=== PATIENT | female | born 1935 | race Caucasian/White ===

== ENCOUNTER 2024-12-02 16:21 | Inpatient (IN) | payer MEDICARE, OTHER, SELFPAY ==
[2024-12-02] VITALS (12 sets, daily range): BP systolic 116–148; BP diastolic 50–99; BMI 32.7; BMI 32.9
[2024-12-02 05:52] LABS: % Basophils 0.2 % (0-2); % Eosinophils 1.4 % (0-6); % Immature Granulocytes 0.6 % (0-0.5); % Lymphocytes 4.8 % (20.5-51.1); % Monocytes 6.1 % (1.7-9.3); % Neutrophils 86.9 % (42.2-75.2); Absolute Eosinophils 0.2 10^3/uL (0-0.7); Absolute Immature Granulocytes 0.1 10^3/uL (0-0.05); Absolute Lymphocytes 0.6 10^3/uL (1.2-3.4); Absolute Monocytes 0.7 10^3/uL (0.1-0.6); Absolute Neutrophils 10.3 10^3/uL (1.4-6.5); Hematocrit 41.9 % (37.0-47.0); Hemoglobin 14.9 g/dL (12.0-16.0); Mean Corp Hgb Conc. 35.6 g/dL (33.0-37.0); Mean Corpuscular Hgb 31.4 pg (27.0-31.0); Mean Corpuscular Volume 88.4 fL (81.0-99.0); Mean Platelet Volume 8.5 fL (7.4-10.4); Nucleated Red Blood Cells % 0 %; Platelet Count 249 10^3/uL (130-400); Red Blood Cell Count 4.74 10^6/uL (4.20-5.40); Red Cell Dist. Width 12.3 % (11.5-14.5); White Blood Cell Count 11.8 10^3/uL (4.8-10.8)
[2024-12-02] MEDS: ZOFRAN ODT (ORALLY DISINTEGRATING) 4 MG PO (06:11)
[2024-12-02 06:26] LABS: ALT (SGPT) 28 U/L (0-35); AST (SGOT) 29 U/L (14-36); Albumin 4.9 g/dl (3.5-5.0); Alkaline Phosphatase 93 U/L (38-126); Blood Urea Nitrogen 19 mg/dl (7-17); Carbon Dioxide 25 mmol/L (22-30); Chloride 102 mmol/L (98-107); Glucose 174 mg/dl (70-99); Lipase 146 U/L (23-300); Potassium 3.9 mmol/L (3.5-5.1); Sodium 140 mmol/L (135-145); Total Bilirubin 1.2 mg/dl (0.2-1.3); Total Protein 7.4 g/dl (6.3-8.2); eGFR > 60.00
--- NOTE | 2024-12-02 08:11 | ED.GENMED ---
History of Present Illness
General
Chief Complaint: Abdominal Symptoms
Source: patient and family (son)
Exam Limitations: none
Time Seen by Provider: 12/02/24 07:58
Nursing documentation reviewed up to this point in time: agreed with
History of Present Illness
History of Present Illness:
89-year-old female presents emergency department due to epigastric abdominal pain. She woke up with the pain several hours ago. She got Zofran upon arrival which she states did help some. Has had multiple hernia repairs and has had a
fundoplication.
Past History
Past History
ED Past Medical History: Arrthythmia, GERD and Other (DVT)
ED Past Surgical History: Appendectomy, Gynecological (D&C), Orthopedic (Left knee replacement), Tonsilectomy and Other (Thyroid biopsy)
Social History
Tobacco: Non-smoker
Alcohol: None
Drug: None
Review of Systems
Review of Systems
Allergies reviewed?: Yes
All Other Systems: Not applicable
Constitutional: Reports no symptoms
EENT: Reports no symptoms
Respiratory: Reports no symptoms
Cardiac: Reports no symptoms
ABD/GI: Reports abdominal pain
: Reports no symptoms
Musculoskeletal: Reports no symptoms
Skin: Reports no symptoms
Neurological: Reports no symptoms
Endocrine: Reports no symptoms
Hematologic/Lymphatic: Reports no symptoms
Psychiatric: Reports no symptoms
Phy Exam
Physical Exam
Physical Exam:
Physical Exam
General: no apparent distress, not acutely ill
Neck: supple. no meningeal signs. normal posterior pharynx
Heart: s1/s2 regular rate and rhythm, no murmur. equal radial
pulses.
HEENT: Pupils equal round reactive to light, EOMI
Lungs: no acute respiratory distress. clear bilaterally
Abdomen: normal bowel sounds. Mild epigastric tenderness, large epigastric ventral hernia. no CVAT
Neuro: alert and oriented. no focal neurological deficits
Skin: no rash
Psychiatric: well kept. interactive and cooperative
Extremities: no edema. no calf tenderness. negative homans. good distal pulses
Course
Orders/Labs/Results
Orders:
Orders
12/02/24 05:43
Complete Blood Count/With Diff Urgent
Comprehensive Metabolic Panel Urgent
Lipase Urgent
12/02/24 06:08
Ondansetron Orally Disint [Zofran Odt (Orally Disintegrating)] 4 mg .ROUTE .STK-MED ONE
12/02/24 06:11
Ondansetron Orally Disint [Zofran Odt (Orally Disintegrating)] 4 mg PO NOW STA
12/02/24 07:52
CT Abd/Pel (IV only)-DH only Urgent
Comment:
Reason For Exam: upper abd pain
12/02/24 08:08
Iohexol [Omnipaque] See Protocol PO NOW STA
12/02/24 10:07
Morphine Sulfate 4 mg IV NOW STA
12/02/24 10:08
Morphine Sulfate 4 mg .ROUTE .STK-MED ONE
12/02/24 11:16
Morphine Sulfate 4 mg IV NOW STA
12/02/24 11:19
Morphine Sulfate 4 mg IV NOW STA
12/02/24 12:44
NG Tube [GI tube insertion- Treatment] ONCE
12/02/24 13:08
Ondansetron Injectable [Zofran] 4 mg IV NOW STA
12/02/24 13:30
Lactic Acid Q4H
Comment: CANCEL 2nd LACTIC ACID IF 1st LACTIC ACID IS LESS THAN 2
12/02/24 17:30
Lactic Acid Q4H
Comment: CANCEL 2nd LACTIC ACID IF 1st LACTIC ACID IS LESS THAN 2
Abnormal Lab Results
12/02/24
05:43
WBC 11.8 H 10^3/uL
(4.8-10.8)
MCH 31.4 H pg
(27.0-31.0)
Abs Immat Gran (auto) 0.1 H 10^3/uL
(0-0.05)
Absolute Neuts (auto) 10.3 H 10^3/uL
(1.4-6.5)
Absolute Lymphs (auto) 0.6 L 10^3/uL
(1.2-3.4)
Absolute Monos (auto) 0.7 H 10^3/uL
(0.1-0.6)
Immature Gran % 0.6 H %
(0-0.5)
Neutrophils % 86.9 H %
(42.2-75.2)
Lymphocytes % 4.8 L %
(20.5-51.1)
BUN 19 H mg/dl
(7-17)
Glucose 174 H mg/dl
(70-99)
12/02/24 05:43
12/02/24 05:43
Vital Signs
Initial and Last Documented VS:
Initial Vital Signs
Temp Pulse Resp BP Pulse Ox
98.5 F 98 16 136/99 98
12/02/24 05:35 12/02/24 05:35 12/02/24 05:35 12/02/24 05:35 12/02/24 05:35
Last Documented Vital Signs
Temp Pulse Resp BP Pulse Ox
98.5 F 100 18 117/55 94
12/02/24 05:35 12/02/24 14:00 12/02/24 14:00 12/02/24 14:00 12/02/24 14:00
MDM/Problems Addressed
Differential Diagnosis Includes:
Bowel obstruction
MDM/Problems Addressed:
89-year-old female with gastric outlet obstruction and colonic. G-tube placed. Discussed with general surgery who will evaluate patient. Admit to hospitalist.
Chronic conditions affecting care: Arrhythmia and Other (History of PE, anticoagulated)
Acute Exacerbation and/or Progression of Chronic Illness: Other (History of PE and atrial fibrillation, anticoagulated)
*Radiology
Radiology exam reviewed: radiology read reviewed (CT abdomen pelvis shows colonic obstruction and gastric outlet obstruction)
*Pulse Oximetry
Patient hypoxic: no
*Critical Care Note
Total Time (30-74mins, 75-104mins- exclusive of procedures): Not Applicable
Patient Management
Social determinants of health affecting care: Living situation
Discussion with other providers: Hospitalist and Production Supervisor Off Shift (general surgeon)
Escalation/DeEscalation of care consider admission/obs:
admit indicated
ED Attending Note
-
Portions of this chart may have been created with voice recognition software.� Occasional wrong word or��sound alike� substitutions may have occurred due to the inherent limitations of voice recognition software.
Discharge Plan
Departure
Patient Disposition: Admit
Date of Disposition: 12/02/24
Time of Disposition: 12:56
Admit to: Med/Surg
Presentation/result/management discussed w/ accepting MD/DO: Hospitalist
Patient with high blood pressure during this ER visit?: Yes
Condition: Fair
Discharge Problem:
Gastric outlet obstruction, Colon obstruction
Prescriptions:
No Action
cholecalciferol (vitamin D3) [Vitamin D3] 2,000 UNIT capsule
2,000 unit PO DAILY
acetaminophen 325 MG tablet
650 tablets PO DAILY
therapeutic multivitamin Tablet
1 tab PO DAILY
tramadol 50 mg Tablet
50 mg PO HS
omeprazole 20 mg Capsule,Delayed Release(Dr/Ec)
20 mg PO DAILY
calcium-magnesium 750-465 mg Tablet
2 tab PO DAILY
loratadine [Claritin] 10 mg Tablet
10 mg PO DAILY
famotidine 20 mg tablet
20 mg PO HS
polyethylene glycol 3350 [Miralax] 17 gram/dose Powder
17 g PO DAILYPRN PRN (Reason: constipation)
Eliquis 5 mg Tablet
5 mg PO BID Qty: 60 0RF
furosemide 40 mg tablet
40 mg PO BID
ropinirole 1 mg tablet
2.5 mg PO BID@1200,1800
ropinirole 1 mg tablet
2 mg PO HS
ropinirole 1 mg tablet
1 mg PO DAILY
diltiazem HCl 180 mg capsule,extended release 24hr
180 mg PO BID
Referrals:
Wayne Perea MD [Family Provider] -
Interventions
Interventions:
*Risk Screen - Suicide Last Done: 12/02/24 05:35
*General Assessment Last Done: 12/02/24 05:35
*Neglect/Abuse Screening Last Done: 12/02/24 05:35
ED- Fall Risk Assessment Last Done: 12/02/24 08:04
*ED COVID-19 Vaccine History Last Done: 12/02/24 05:35
KH-Rhsjvl-Cgnkovpthq Assessment Last Done: 12/02/24 08:15
Discharge Date and Time
Print Language: URDU
[2024-12-02] MEDS: OMNIPAQUE 50 ML PO (08:14)
--- NOTE | 2024-12-02 08:16 | EDRN ---
Pt states she has had fundification in past and cannot vomit though has nausea and pain w/ hernia above umbilical area, very large. Pt has had multiple surgeries for this hernia that have been unsuccessful. Has [address]
[2024-12-02] MEDS: MORPHINE SULFATE 4 MG IV ×3 (10:14→13:18)
--- NOTE | 2024-12-02 11:57 | EDRN ---
Pain med starting to work and pain is now 7/10 from 1010 at this time.
[2024-12-02] MEDS: ZOFRAN 4 MG IV (13:18)
--- NOTE | 2024-12-02 13:49 | EDRN ---
Alondra w/ Dr. Frank was in to see pt. NGT placed #16 Fr down L nare at this time w/ 950 drained from abd after checked w/ air and drainage of brown green bile colored drainage.
--- NOTE | 2024-12-02 14:02 | CON.GS ---
Addendum entered and electronically signed by Rajan Frank MD 12/02/24 17:53:
Patient seen and examined independently of nurse practitioner this evening. Agree with documented consultation note consistent with my current evaluation.
HPI: 89-year-old female with longstanding history of a known recurrent incisional ventral hernia that she has been following expectantly. She is typically able to reduce the hernia rather easily and utilizes an abdominal binder to assist with
supporting the region. On Thursday evening she felt the acute onset of epigastric abdominal pain and nausea as well as the hernia being larger than typically and 2 tender to reduce. Symptoms worsened over the night and persisted into the a.m.
prompting emergency department evaluation. She did have a bowel movement this a.m. Bowels have been moving regularly otherwise.
PMH notable for P A-fib, pituitary adenoma, RLS, DVT/PE, vertigo, essential tremor
Abdominal PSH notable for open cholecystectomy, hiatal hernia/fundoplication repair x 2, tubal ligation, appendectomy, incisional/ventral hernia repair x 2 with mesh
AF VSS
NAD, AAOx3, her son is at bedside
NG tube in place with dark bilious contents in canister
Abdomen: Soft, mildly distended, large upper midline incisional hernia which is soft and reducible but immediately reoccurs due to the size of the hernia. Minimal tenderness on palpation of the hernia.
CT abdomen/pelvis imaging personally reviewed and interpreted. There is a large upper midline recurrent incisional hernia containing loop of transverse colon as well as stomach to the level of the pylorus. Oral contrast opacifying a distended
stomach but does not exit the hernia sac. Pylorus appears to be pinched at the right side of the fascial defect. No signs of strangulation such as inflammation, pneumatosis or thickening of the colon or stomach.
Assessment/plan: 89-year-old female presenting with obstructive symptoms likely secondary to large recurrent ventral incisional hernia. No signs of immediate stomach/bowel compromise or threat.
NG tube decompression to alleviate gastric distention will likely allow stomach to more readily and spontaneously reduce to alleviate obstructive component
Recommend utilizing abdominal wall binder for support
At the moment continue to hold Eliquis
Will follow
Ultimately given size of the hernia defect and patient's age as well as prior abdominal surgical history it would be quite invasive to entertain repairing such a large hernia which typically will require abdominal wall reconstruction with myofascial
flap/component separation. Likely will continue to opt for nonoperative management with supportive care.
Original Note:
Medical History
-
Chief Complaint: n/v
History of Present Illness:
Ms Carrera is an 89 yo female with a h/o brittanie, appi, UHR with mesh in the with recurrence and subsequent repair in 2002 with mesh at the time of a fundoplication done for GERD with recurrence and increasing size of the hernia over the past few
years who presents with nausea and epigastric pain which began last night. She was able to pass a BM this morning but notes she has not been passing flatus with increasing abdominal distention noted. Her symptoms worsened throughout the night into
this morning and she presented through the ED for evaluation.
Past Medical History
Past Medical History: Arrhythmias (PAF on Eliquis LD 12/01 pm), GERD and Other (pituitary adenoma, rls, dvt/pe, vertigo, essential tremor)
Past Surgical History: Appendectomy, Brain (for pituitary adenoma), Cholecystectomy, Gynecological (tubal ligation), Hernia Repair (UHR with mesh x2 (2nd repair at time of fundoplication)) and Other (Fundoplication for GERD 2002)
Social History
Tobacco: Non-Smoker
Alcohol: None
Living: With Family
Family History
Family History: Reviewed & Not Pertinent
Allergies / Home Medications
Allergy/AdvReac Type Severity Reaction Status Date / Time
adhesive Allergy SENSITIVE Verified 07/04/23 11:29
amoxicillin Allergy Rash Verified 07/04/23 11:29
aztreonam Allergy Rash Verified 07/04/23 11:29
Penicillins Allergy Anaphylaxis Verified 07/04/23 11:29
�Medication �Instructions �Recorded �Confirmed �Type
cholecalciferol (vitamin D3) 50 2,000 unit PO DAILY Supplement 06/26/15 12/02/24 History
mcg (2,000 unit) capsule (Vitamin
D3)
acetaminophen 325 mg tablet 650 tablets PO DAILY 06/28/15 12/02/24 History
calcium-magnesium 750 mg-465 mg 2 tab PO DAILY Supplement 07/04/23 12/02/24 History
tablet
famotidine 20 mg tablet 20 mg PO HS Gastrointestinal Issue 07/04/23 12/02/24 History
loratadine 10 mg tablet (Claritin) 10 mg PO DAILY Allergies 07/04/23 12/02/24 History
omeprazole 20 mg capsule,delayed 20 mg PO DAILY Gastrointestinal 07/04/23 12/02/24 History
release Issue
polyethylene glycol 3350 17 17 g PO DAILYPRN PRN constipation 07/04/23 12/02/24 History
gram/dose oral powder (Miralax)
therapeutic multivitamin 1 tab PO DAILY Supplement 07/04/23 12/02/24 History
tramadol 50 mg tablet 50 mg PO HS Pain 07/04/23 12/02/24 History
apixaban 5 mg tablet (Eliquis) 5 mg PO BID #60 tabs 07/09/23 12/02/24 Rx
diltiazem HCl 180 mg 180 mg PO BID 12/02/24 12/02/24 History
capsule,extended release 24 hr
furosemide 40 mg tablet 40 mg PO BID 12/02/24 12/02/24 History
ropinirole 1 mg tablet 1 mg PO DAILY 12/02/24 12/02/24 History
ropinirole 1 mg tablet 2 mg PO HS 12/02/24 12/02/24 History
ropinirole 1 mg tablet 2.5 mg PO BID@1200,1800 12/02/24 12/02/24 History
Review of Systems
-
History Source: Patient and Family
All other systems: Negative unless noted
A 10 point review of systems was completed, and was negative except as per HPI.
Physical Exam
Vital Signs
Temp Pulse Resp BP Pulse Ox
98.5 F 97 18 122/66 97
12/02/24 05:35 12/02/24 11:00 12/02/24 11:00 12/02/24 11:00 12/02/24 11:00
12/01/24 12/02/24 12/03/24
06:59 06:59 06:59
Actual Weight 91.8 kg
Body Mass Index (BMI) 32.7
Lab Results
12/02/24 05:43
12/02/24 05:43
WBC 11.8 10^3/uL (4.8-10.8) H 12/02/24 05:43
Hgb 14.9 g/dL (12.0-16.0) 12/02/24 05:43
Hct 41.9 % (37.0-47.0) 12/02/24 05:43
Plt Count 249 10^3/uL (130-400) 12/02/24 05:43
Abs Immat Gran (auto) 0.1 10^3/uL (0-0.05) H 12/02/24 05:43
Neutrophils % 86.9 % (42.2-75.2) H 12/02/24 05:43
Physical Exam
General: Well Developed and Well Nourished
HEENT: Moist Mucous Membranes
Respiratory: Non Labored Respirations
GI: Soft, Non Tender, Distended and Other (supraumbilical hernia which is soft and wide mouthed; easy to reduce )
Skin: Warm and Dry
Neuro: Awake, Alert and AO x 3
Psych: Calm
Data Reviewed
-
CT Scan: Image Personally Visualized and interpreted, Report Reviewed by me, Discussed with Physician, Discussed with Nurse, Discussed with Patient and Discussed with Family
Labs: Labs Reviewed by me, Discussed with Physician, Discussed with Patient and Discussed with Family
Old Records: Reviewed
Assessment / Plan
-
Ms Carrera is an 89 yo female with a h/o brittanie, appi, UHR with mesh in the 1989' with recurrence and subsequent repair in 2002 with mesh at the time of a fundoplication done for GERD with recurrence and increasing size of the hernia over the past few
years who presents with nausea and epigastric pain which began last night.
Ct imaging with large hernia containing bowel and portion of the stomach with resultant obstruction. NGT was placed at bedside for approximately 1 Liter of initially w[place]sworth material and then bile. After decompression of the stomach, the hernia was
able to be reduced. Soft, non-tender and no overlying skin changes present. Abdominal distention present. Afebrile with stable vital signs.
--Continue NPO with NGT for decompression
--IVF while NPO
--Hold PO anticoagulation at this time
--Medical management as per primary team
[2024-12-02 15:18] LABS: Lactic Acid 1.5 mmol/L (0.7-2.0)
--- NOTE | 2024-12-02 15:47 | CM ---
CM reviewed medical records. CM spoke with patient's daughter in law who endorsed that patient lives in an [place] apartment. Patient is a mennonite and active in the community. As per daughter in law, if patient should need placement, they would prefer
[facility] or [facility].
Patient remains acutely ill at this time. CM will continue to follow.
--- NOTE | 2024-12-02 16:19 | HPS.HSE ---
Addendum entered and electronically signed by Kenna Webster MD 12/02/24 16:41:
I personally performed a history and physical exam of the patient and discussed management with the resident. I reviewed the resident's note and agree with the documented findings and plan of care HPI/CC.
A/P:
# Epigastric abdominal pain 2/2 bowel obstruction 2/2 large hernia containing bowel and portion of the stomach
s/p stomach decompression and hernia reduction
NGT per surgery
NPO with gentle IVF
noted pedal edema, low dose IV lasix 20 mg daily
IV Zofran PRN
GS on board
# paroxysmal A-fib
COSMETIC SURGEON Eliquis on hold, replace with heparin drip
COSMETIC SURGEON PO Diltiazem on hold, can use IV Cardizem PRN for HR > 120
# Restless leg syndrome
Ropinirole on hold
DVT prophylaxis�heparin drip
CODE STATUS�DNR
Original Note:
Family Physician
-
Family Physician: Wayne Perea
Chief Complaint
-
Abdominal pain
History of Present Illness
89 yo female with a past medical history of A-fib on Eliquis, PE/DVT, cholecystectomy, appendectomy and multiple abdominal hernia repairs presents with nausea and epigastric pain which began last night. She has been having this from the protruded
contents of the abdominal hernia repairs since the past several months and uses abdominal binder at home. She was able to pass a BM this morning but notes she has not been passing flatus with increasing abdominal distention noted. Her symptoms
worsened throughout the night into this morning and she presented through the ED for evaluation. She denies fever/chills, diarrhea.
Medical History
Past Medical History
Past Medical History: Reports Arrhythmia and Other (DVT/PE, restless leg syndrome)
Past Surgical History: Reports Appendectomy, Cholecystectomy and Tonsilectomy
Social History
Tobacco: Non-smoker
Alcohol: None
Family History
Family History: Not pertinent
Allergies / Home Medications
Allergies reflects when Allergies were last updated in [employer].
Home Medications with original date entered in [employer]
Allergy/Medication List:
Allergies
Allergy/AdvReac Type Severity Reaction Status Date / Time
adhesive Allergy SENSITIVE Verified 07/04/23 11:29
amoxicillin Allergy Rash Verified 07/04/23 11:29
aztreonam Allergy Rash Verified 07/04/23 11:29
Penicillins Allergy Anaphylaxis Verified 07/04/23 11:29
Home Medications
cholecalciferol (vitamin D3) 50 mcg (2,000 unit) capsule (Vitamin D3) 2,000 unit PO DAILY Supplement 06/26/15
acetaminophen 325 mg tablet 650 tablets PO DAILY Pain 06/28/15
calcium-magnesium 750 mg-465 mg tablet 2 tab PO DAILY Supplement 07/04/23
famotidine 20 mg tablet 20 mg PO HS Gastrointestinal Issue 07/04/23
loratadine 10 mg tablet (Claritin) 10 mg PO DAILY Allergies 07/04/23
omeprazole 20 mg capsule,delayed release 20 mg PO DAILY Gastrointestinal Issue 07/04/23
polyethylene glycol 3350 17 gram/dose oral powder (Miralax) 17 g PO DAILYPRN PRN constipation 07/04/23
therapeutic multivitamin 1 tab PO DAILY Supplement 07/04/23
tramadol 50 mg tablet 50 mg PO HS Pain 07/04/23
apixaban 5 mg tablet (Eliquis) 5 mg PO BID Blood Clot Prevention/Tx 12/02/24
diltiazem HCl 180 mg capsule,extended release 24 hr 180 mg PO BID Arrhythmia 12/02/24
furosemide 40 mg tablet 40 mg PO BID Fluid Retention/Swelling 12/02/24
ropinirole 1 mg tablet 1 mg PO DAILY movement disorder 12/02/24
ropinirole 1 mg tablet 2 mg PO HS movement disorder 12/02/24
ropinirole 1 mg tablet 2.5 mg PO BID@1200,1800 movement disorder 12/02/24
Review of Systems
-
A 12 point ROS was completed and negative except as noted: Yes
Physical Exam
Vital Signs
Vital Signs
Temp Pulse Resp BP Pulse Ox
98.5 F 100 18 117/55 94
12/02/24 05:35 12/02/24 14:00 12/02/24 14:00 12/02/24 14:00 12/02/24 14:00
Physical Exam
General: No Apparent Distress
HEENT: NormoCephalic, Anicteric and Moist mucous membranes
Respiratory: Clear
Cardiac: S1/S2 and Regular Rhythm
GI: Soft, Tender, Distended and Other (Supraumbilical hernia)
Skin: Warm and Dry
Neuro: Awake, Alert, Oriented and AO x 3
Laboratory Results
-
12/02/24 05:43
12/02/24 05:43
Laboratory Results
Lactic Acid Cancelled 12/02/24 17:30
Total Bilirubin 1.2 mg/dl (0.2-1.3) 12/02/24 05:43
AST 29 U/L (14-36) 12/02/24 05:43
ALT 28 U/L (0-35) 12/02/24 05:43
Alkaline Phosphatase 93 U/L (38-126) 12/02/24 05:43
Lipase 146 U/L (23-300) 12/02/24 05:43
Impression/Plan
-
89-year-old female presenting to the ED with abdominal pain and nausea.
Impression/plan
#Epigastric abdominal pain, distention
From herniation of the supraumbilical abdominal wall defect
Ct imaging with large hernia containing bowel and portion of the stomach with resultant partial obstruction.
Surgery consult
N.p.o.
IV fluids
NG tube decompression
IV Zofran
Analgesics as needed
Discontinue Eliquis
Started on heparin drip
#A-fib
Eliquis on hold
Diltiazem on hold
Started on heparin drip
#Restless leg syndrome
Ropinirole on hold
#DVT prophylaxis�heparin
#CODE STATUS�DNR
[2024-12-02] MEDS: LASIX 20 MG IV (17:03)
--- NOTE | 2024-12-02 18:30 | PTCARENOTE ---
Patient received to room 436-02 from ED. Patient assisted into bed by nursing staff. Nasogastric tube to wall suction with green/brown drainage in tubing. Patient oriented to room with call stevenson in reach and verbalizes understanding to ring for
needs.
[2024-12-02] MEDS: HEPARIN 25000 UNITS/250 ML IV (19:53)
[2024-12-02] MEDS: NSS 1000 IV (20:05)
[2024-12-02] MEDS: NSS (PRESERVATIVE FREE) 10 ML IV (20:06)
[2024-12-02] MEDS: PROTONIX IV 40 MG IV (20:06)
[2024-12-02 20:19] LABS: Hematocrit 44.3 % (37.0-47.0); Hemoglobin 15.3 g/dL (12.0-16.0); Mean Corp Hgb Conc. 34.5 g/dL (33.0-37.0); Mean Corpuscular Hgb 31.7 pg (27.0-31.0); Mean Corpuscular Volume 91.7 fL (81.0-99.0); Mean Platelet Volume 8.7 fL (7.4-10.4); Platelet Count 222 10^3/uL (130-400); Red Blood Cell Count 4.83 10^6/uL (4.20-5.40); Red Cell Dist. Width 12.7 % (11.5-14.5); White Blood Cell Count 7.5 10^3/uL (4.8-10.8)
[2024-12-02 20:27] LABS: APTT 34.8 Sec (23.4-35.0)
[2024-12-03] MEDS: OFIRMEV 100 IV (00:32)
[2024-12-03 02:48] LABS: APTT 74.8 Sec (23.4-35.0)
[2024-12-03 07:00] VITALS: BP 135/75
[2024-12-03 09:17] LABS: % Basophils 0.2 % (0-2); % Immature Granulocytes 0.2 % (0-0.5); % Lymphocytes 20.2 % (20.5-51.1); % Monocytes 16.6 % (1.7-9.3); % Neutrophils 62.8 % (42.2-75.2); Absolute Lymphocytes 0.8 10^3/uL (1.2-3.4); Absolute Monocytes 0.7 10^3/uL (0.1-0.6); Absolute Neutrophils 2.6 10^3/uL (1.4-6.5); Hemoglobin 14.3 g/dL (12.0-16.0); Mean Corpuscular Hgb 31.4 pg (27.0-31.0); Mean Corpuscular Volume 92.1 fL (81.0-99.0); Mean Platelet Volume 8.9 fL (7.4-10.4); Nucleated Red Blood Cells % 0 %; Platelet Count 175 10^3/uL (130-400); Red Blood Cell Count 4.56 10^6/uL (4.20-5.40); Red Cell Dist. Width 12.7 % (11.5-14.5); White Blood Cell Count 4.1 10^3/uL (4.8-10.8)
[2024-12-03 09:23] LABS: APTT 70.1 Sec (23.4-35.0)
[2024-12-03 09:40] LABS: Blood Urea Nitrogen 23 mg/dl (7-17); Calcium 8.4 mg/dl (8.4-10.2); Carbon Dioxide 27 mmol/L (22-30); Chloride 103 mmol/L (98-107); Estimated Creatinine Clearance 56 ml/min; Glucose 89 mg/dl (70-99); Potassium 3.7 mmol/L (3.5-5.1); Sodium 141 mmol/L (135-145); eGFR > 60.00
[2024-12-03] MEDS: LASIX 20 MG IV (09:46)
[2024-12-03] MEDS: PROTONIX IV 40 MG IV (09:47)
[2024-12-03] MEDS: NSS (PRESERVATIVE FREE) 10 ML IV (09:48)
[2024-12-03 11:18] LABS: Urine Albumin 2+ (Neg - Trace); Urine Bilirubin Negative (Negative); Urine Character Clear (Clear); Urine Color Yellow; Urine Glucose Negative (Negative); Urine Ketone 1+ (Negative); Urine Leukocyte Negative (Negative); Urine Nitrite Negative (Negative); Urine Occult Blood 2+ (Negative); Urine Specific Gravity 1.015 (<1.030); Urine Urobilinogen Negative (Neg - 1+)
[2024-12-03 11:33] LABS: Urine Bacteria Few (Negative)
[2024-12-03] MEDS: ATIVAN 0.25 MG IV ×2 (12:42→22:04)
--- NOTE | 2024-12-03 13:19 | W.PN.GS2 ---
Addendum entered and electronically signed by Higinio Linder MD 12/03/24 19:50:
I saw and examined the patient.
The LUMP MAKER's note was reviewed and I agree with the note.
Original Note:
Today's Communication / Plan
-
NPO/NGT
Assessment / Plan
-
Assessment: 89-year-old female presenting with obstructive symptoms likely secondary to large recurrent ventral incisional hernia. No signs of immediate stomach/bowel compromise or threat.
NG tube decompression to alleviate gastric distention will likely allow stomach to more readily and spontaneously reduce to alleviate obstructive component
Febrile yesterday to 102.5, VSS
Labs stable
Plan:
Recommend utilizing abdominal wall binder for support
At the moment continue to hold Eliquis
Continue NGT decompression, await passage of flatus
Will follow
Ultimately given size of the hernia defect and patient's age as well as prior abdominal surgical history it would be quite invasive to entertain repairing such a large hernia which typically will require abdominal wall reconstruction with myofascial
flap/component separation. Likely will continue to opt for nonoperative management with supportive care.
Subjective Data
-
Date of Service: December 03, 2024
Patient seen and examined at bedside with Dr Linder. Denies n/v. Passed a little liquid stool but no flatus. Denies pain but is tender to exam of hernia.
Objective Data
-
Intake and Output
12/02/24 12/03/24 12/04/24
06:59 06:59 06:59
Output Total 1325 / 1325 850 / 850
Balance -1325 / -1325 -850 / -850
Output:
Gastrointestinal tube output ( 1325 / 1325 100 / 100
Total)
[place] Sump 100 / 100
Urine, Voided 750 / 750
Other:
Number of approximated MODERATE 1
amounts of urine
Vital Signs
Temp Pulse Resp BP Pulse Ox
98.7 F 91 18 135/75 97
12/03/24 07:00 12/03/24 07:00 12/03/24 07:00 12/03/24 09:46 12/03/24 07:00
Lab Results
12/03/24 08:48
12/03/24 08:48
Calcium 8.4 mg/dl (8.4-10.2) 12/03/24 08:48
Total Bilirubin 1.2 mg/dl (0.2-1.3) 12/02/24 05:43
AST 29 U/L (14-36) 12/02/24 05:43
ALT 28 U/L (0-35) 12/02/24 05:43
Alkaline Phosphatase 93 U/L (38-126) 12/02/24 05:43
Total Protein 7.4 g/dl (6.3-8.2) 12/02/24 05:43
Albumin 4.9 g/dl (3.5-5.0) 12/02/24 05:43
Physical Exam
-
NAD
ABD soft with upper midline incisional hernia tender but soft/reducible, mild distention
--- NOTE | 2024-12-03 13:35 | W.PN.HOSP.TC ---
Addendum entered and electronically signed by Karmen Weaver MD 12/03/24 15:55:
I saw and evaluated the patient independently. I reviewed the resident�s note and agree with findings and plan as documented by Dr. Cartwright.
GENERAL: well developed, well nourished, female in no apparent distress
HEENT:NGT to intermittent suction
HEART: irreg irreg
LUNGS : clear to auscultation bilaterally
ABDOM: soft, nontender, nondistended, + bowel sounds + large ventral hernia
EXT: no cyanosis, clubbing, or edema
NEUROLOGIC: grossly intact
Epigastric abdominal pain, distention likely due to SBO from adhesions/hernia--CT imaging with large hernia containing bowel and portion of the stomach with resultant partial obstruction--reduced by surgery--cont NGT--NPO/IVF--cont abdominal
binder--restart oral meds when no longer on NGT--zofran--Eliquis on hold and IV heparin started---Due to prior recurrent hernia repairs, age and size of the hernia�surgery recommend nonoperative management with supportive care.
Febrile episode--may be related to SBO--consideration for ABX
possible RCC?--NOT telling patient at this time--want recovery from SBO
Paroxysmal A-fib with diastolic CHF no exacerbation--Eliquis on hold--cont IV heparin--IV diltiazem
Restless leg syndrome--Ropinirole on hold--will try low dose IV ativan 0.25mg HS
DVT proph�heparin
CODE STATUS�DNR
Original Note:
Today's Communication/Plan
-
Continue NG tube decompression
Assessment / Plan
Assessment / Plan
89-year-old female presenting to the ED with abdominal pain and nausea.
Impression/plan
#Epigastric abdominal pain, distention
From herniation of the supraumbilical abdominal wall defect
Ct imaging with large hernia containing bowel and portion of the stomach with resultant partial obstruction.
Surgery consulted
Hernia sac reduced by surgery
N.p.o.
IV fluids
Continue NG tube decompression
await passage of flatus
Abdominal wall binder for support
IV Zofran
Analgesics as needed
Due to prior recurrent hernia repairs, age and size of the hernia�surgery recommend nonoperative management with supportive care.
Discontinue Eliquis
Started on heparin drip
#Febrile episode
Tmax�102.5
Rest of the vital stable, labs stable
Chest x-ray�no evidence of pneumonia
Urinalysis pending.
#A-fib
Eliquis on hold
Per oral diltiazem on hold, IV Cardizem PRN for HR > 120
Started on heparin drip
#Restless leg syndrome
Ropinirole on hold
#DVT prophylaxis�heparin
#CODE STATUS�DNR
Anticipated Discharge: 24 - 48 hours
Subjective/Interval History
-
Date of Service: December 03, 2024
Patient reports her abdominal pain and nausea has improved.
She wanted something for her restless leg syndrome, as she could not sleep well yesterday.
Objective Data
-
Labs:
Laboratory Results
12/03/24 12/03/24 12/03/24
02:19 08:48 14:30
WBC 4.1 L
Hgb 14.3
Hct 42.0
Plt Count 175 D
APTT 74.8 H 70.1 H Pending
Sodium 141
Potassium 3.7
Chloride 103
Carbon Dioxide 27
BUN 23 H
Creatinine 0.8
Glucose 89
Calcium 8.4
Vital Signs:
Vital Signs
Temp Pulse Resp BP Pulse Ox
98.7 F 91 18 135/75 97
12/03/24 07:00 12/03/24 07:00 12/03/24 07:00 12/03/24 09:46 12/03/24 07:00
I&O
12/02/24 12/03/24 12/04/24
06:59 06:59 06:59
Output Total 1325 / 1325 850 / 850
Balance -1325 / -1325 -850 / -850
Physical Exam
-
General: No Apparent Distress
HEENT: Normocephalic and Atraumatic
Respiratory: Clear to Auscultation
Cardiac: Regular Rhythm and S1/S2
GI: Soft, Normal Bowel Sounds, Tender and Other (Reducible midline incisional hernia)
Skin: Warm and Dry
Neuro: Awake, Alert, Oriented and AO x 3
Psych: Calm
[2024-12-03] MEDS: NSS 1000 IV (14:43)
[2024-12-03 15:01] LABS: APTT 99.7 Sec (23.4-35.0)
[2024-12-03 16:26] VITALS: BP 112/74; PULSE 93
[2024-12-03 16:32] VITALS: BP 112/74; PULSE 93
[2024-12-03] MEDS: HEPARIN 25000 UNITS/250 ML IV (18:29)
[2024-12-03 21:12] LABS: APTT 133.7 Sec (23.4-35.0)
[2024-12-03] MEDS: NSS (PRESERVATIVE FREE) 0.125 ML IV (22:05)
[2024-12-03 23:30] VITALS: BP 114/68
[2024-12-04] MEDS: ATIVAN 0.25 MG IV (03:51)
[2024-12-04] MEDS: NSS (PRESERVATIVE FREE) 0.125 ML IV (03:52)
[2024-12-04 07:05] VITALS: BP 154/74
[2024-12-04 07:23] LABS: % Basophils 0.3 % (0-2); % Eosinophils 0.5 % (0-6); % Lymphocytes 21.9 % (20.5-51.1); % Monocytes 18.8 % (1.7-9.3); % Neutrophils 58.5 % (42.2-75.2); Absolute Lymphocytes 0.9 10^3/uL (1.2-3.4); Absolute Monocytes 0.7 10^3/uL (0.1-0.6); Absolute Neutrophils 2.3 10^3/uL (1.4-6.5); Hematocrit 36.4 % (37.0-47.0); Hemoglobin 12.7 g/dL (12.0-16.0); Mean Corp Hgb Conc. 34.9 g/dL (33.0-37.0); Mean Corpuscular Hgb 31.4 pg (27.0-31.0); Mean Corpuscular Volume 89.9 fL (81.0-99.0); Mean Platelet Volume 9.5 fL (7.4-10.4); Nucleated Red Blood Cells % 0 %; Platelet Count 143 10^3/uL (130-400); Red Blood Cell Count 4.05 10^6/uL (4.20-5.40); Red Cell Dist. Width 12.3 % (11.5-14.5); White Blood Cell Count 3.9 10^3/uL (4.8-10.8)
[2024-12-04 07:29] LABS: APTT 72.8 Sec (23.4-35.0)
[2024-12-04 07:42] LABS: ALT (SGPT) 39 U/L (0-35); AST (SGOT) 43 U/L (14-36); Albumin 4.1 g/dl (3.5-5.0); Alkaline Phosphatase 73 U/L (38-126); Blood Urea Nitrogen 18 mg/dl (7-17); Calcium 8.5 mg/dl (8.4-10.2); Carbon Dioxide 21 mmol/L (22-30); Chloride 108 mmol/L (98-107); Estimated Creatinine Clearance 74 ml/min; Glucose 89 mg/dl (70-99); Potassium 3.6 mmol/L (3.5-5.1); Sodium 142 mmol/L (135-145); Total Bilirubin 1.1 mg/dl (0.2-1.3); Total Protein 6.5 g/dl (6.3-8.2); eGFR > 60.00
--- NOTE | 2024-12-04 08:23 | W.PN.HOSP.TC ---
Addendum entered and electronically signed by Karmen Weaver MD 12/04/24 20:19:
I saw and evaluated the patient independently. I reviewed the resident�s note and agree with findings and plan as documented by Dr. Cartwright.
GENERAL: well developed, well nourished, female in no apparent distress
HEENT: NGT to intermittent suction
HEART: irreg irreg
LUNGS : clear to auscultation bilaterally
ABDOM: soft, nontender, nondistended, + bowel sounds + large ventral hernia
EXT: no cyanosis, clubbing, or edema
NEUROLOGIC: grossly intact
Epigastric abdominal pain, distention likely due to SBO from adhesions/hernia--CT imaging with large hernia containing bowel and portion of the stomach with resultant partial obstruction--reduced by surgery--doing better, abdominal binder in place,
clamping NGT--NPO/IVF--restart oral meds when no longer on NGT--zofran--Eliquis on hold and IV heparin started---Due to prior recurrent hernia repairs, age and size of the hernia�surgery recommend nonoperative management with supportive care.
Febrile episode--may be related to SBO--consideration for ABX
possible RCC?--NOT telling patient at this time--want recovery from SBO
Paroxysmal A-fib with diastolic CHF no exacerbation--Eliquis on hold--cont IV heparin--IV diltiazem
Restless leg syndrome--Ropinirole on hold--low dose IV ativan 0.25mg did not work, increase to 0.5mg--restart ropinirole as soon as able
DVT proph�heparin
CODE STATUS�DNR
updated son Sigifredo and LB Landon ([employer]CH[employer]) at bedside
Original Note:
Today's Communication/Plan
-
NG Tube clamp trial.
Ativan 0.5 mg , prn.
Assessment / Plan
Assessment / Plan
89-year-old female presenting to the ED with abdominal pain and nausea.
Impression/plan
#Epigastric abdominal pain, distention
From herniation of the supraumbilical abdominal wall defect
Ct imaging with large hernia containing bowel and portion of the stomach with resultant partial obstruction.
Surgery consulted
Hernia sac reduced by surgery
NPO
IV fluids
NG tube clamp trial
Hold on diet advancement for now.
Abdominal wall binder for support
IV Zofran
Analgesics as needed
Due to prior recurrent hernia repairs, age and size of the hernia�surgery recommend nonoperative management with supportive care.
Discontinue Eliquis
Started on heparin drip
#Febrile episode
Tmax�102.5
Rest of the vital stable, labs stable
Chest x-ray�no evidence of pneumonia
Urinalysis - no evidence of uti.
Monitor fever curve.
#A-fib
Eliquis on hold
Per oral diltiazem on hold, IV Cardizem PRN for HR > 120
Started on heparin drip
#Restless leg syndrome
Ropinirole on hold
Ativan 0.5 mg prn.
#DVT prophylaxis�heparin
#CODE STATUS�DNR
Anticipated Discharge: 24 - 48 hours
Subjective/Interval History
-
Date of Service: December 04, 2024
Patient reports her symptoms improved, no nausea, mild abdominal pain. Passed flatus.
She requests to have something strong for her restless legs, says, yesterday's dose of ativan didn't help much.
Objective Data
-
Labs:
Laboratory Results
12/03/24 12/04/24 12/04/24
20:44 05:00 07:01
WBC 3.9 L
Hgb 12.7
Hct 36.4 L
Plt Count 143
APTT 133.7 H Cancelled 72.8 H
Sodium 142
Potassium 3.6
Chloride 108 H
Carbon Dioxide 21 L
BUN 18 H
Creatinine 0.6
Glucose 89
Calcium 8.5
Total Bilirubin 1.1
AST 43 H
ALT 39 H
Alkaline Phosphatase 73
12/04/24
14:00
WBC
Hgb
Hct
Plt Count
APTT Pending
Sodium
Potassium
Chloride
Carbon Dioxide
BUN
Creatinine
Glucose
Calcium
Total Bilirubin
AST
ALT
Alkaline Phosphatase
Vital Signs:
Vital Signs
Temp Pulse Resp BP Pulse Ox
98.3 F 104 16 154/74 99
12/04/24 07:05 12/04/24 07:05 12/04/24 07:05 12/04/24 07:05 12/04/24 07:05
I&O
12/03/24 12/04/24 12/05/24
06:59 06:59 06:59
Intake Total 600 / 600
Output Total 1325 / 1325 900 / 900 100 / 100
Balance -1325 / -1325 -300 / -300 -100 / -100
Review of Systems
-
All other systems: Reviewed and negative (as per history)
Physical Exam
-
HEENT: Normocephalic, Atraumatic and Other (NG tube in place.)
Respiratory: Clear to Auscultation
Cardiac: Regular Rhythm and S1/S2
GI: Soft, Distended and Other (upper midline incisional hernia tender, reducible)
Musculoskeletal: Other (restless legs)
Skin: Warm and Dry
Neuro: Awake, Alert, Oriented and AO x 3
Psych: Calm
[2024-12-04] MEDS: NSS 1000 IV (08:33)
[2024-12-04] MEDS: LASIX 20 MG IV (08:33)
[2024-12-04] MEDS: PROTONIX IV 40 MG IV (08:34)
[2024-12-04] MEDS: NSS (PRESERVATIVE FREE) 10 ML IV (08:34)
--- NOTE | 2024-12-04 11:58 | CHAP ---
No was enjoying a visit from her son and [id number]. She welcomed prayer. Emotional and spiritual support provided.
--- NOTE | 2024-12-04 12:58 | W.PN.GS2 ---
Addendum entered and electronically signed by Higinio Linder MD 12/04/24 15:29:
I saw and examined the patient.
The [employer] INST[employer]ER's note was reviewed and I agree with the note.
Original Note:
Today's Communication / Plan
-
Clamp trial of NGT
Assessment / Plan
-
Assessment: 89-year-old female presenting with obstructive symptoms likely secondary to large recurrent ventral incisional hernia. No signs of immediate stomach/bowel compromise or threat.
No further fevers, VSS
NGT in place for decompression. Now passing flatus with 3 stools last night
Labs stable
Plan:
Recommend utilizing abdominal wall binder for support
At the moment continue to hold Eliquis
Clamp trial of NGT, remove if low residual but will hold on diet advancement for now
Will follow
Ultimately given size of the hernia defect and patient's age as well as prior abdominal surgical history it would be quite invasive to entertain repairing such a large hernia which typically will require abdominal wall reconstruction with myofascial
flap/component separation. Likely will continue to opt for nonoperative management with supportive care.
Subjective Data
-
Date of Service: December 04, 2024
Patient seen and examined at bedside with Dr Linder. Passing flatus and stools. Denies nausea. Some tenderness persists to hernia site.
Objective Data
-
Intake and Output
12/03/24 12/04/24 12/05/24
06:59 06:59 06:59
Intake Total 600 / 600
Output Total 1325 / 1325 900 / 900 100 / 100
Balance -1325 / -1325 -300 / -300 -100 / -100
Intake:
IV fluids (Total) 600 / 600
Output:
Gastrointestinal tube output ( 1325 / 1325 150 / 150 100 / 100
Total)
[place] Sump 150 / 150 100 / 100
Urine, Voided 750 / 750
Other:
Number of approximated MODERATE 1 1
amounts of urine
Vital Signs
Temp Pulse Resp BP Pulse Ox
98.3 F 104 16 154/74 99
12/04/24 07:05 12/04/24 07:05 12/04/24 07:05 12/04/24 07:05 12/04/24 07:05
Lab Results
12/04/24 07:01
12/04/24 07:01
Calcium 8.5 mg/dl (8.4-10.2) 12/04/24 07:01
Total Bilirubin 1.1 mg/dl (0.2-1.3) 12/04/24 07:01
AST 43 U/L (14-36) H 12/04/24 07:01
ALT 39 U/L (0-35) H 12/04/24 07:01
Alkaline Phosphatase 73 U/L (38-126) 12/04/24 07:01
Total Protein 6.5 g/dl (6.3-8.2) 12/04/24 07:01
Albumin 4.1 g/dl (3.5-5.0) 12/04/24 07:01
Physical Exam
-
NAD
ABD soft with upper midline incisional hernia tender but soft/reducible, ND
[2024-12-04] MEDS: NSS (PRESERVATIVE FREE) 0.25 ML IV ×2 (13:23→21:42)
[2024-12-04] MEDS: ATIVAN 0.5 MG IV ×2 (13:24→21:42)
[2024-12-04 14:42] LABS: APTT 81.8 Sec (23.4-35.0)
--- NOTE | 2024-12-04 16:26 | CM ---
Pt seen bedside w/ family. Initial assessment completed. Admitted for abdominal pain.
Pt report she lives alone in single story home- no steps to enter from the front, 1 step entering from the garage.
Pt reports she is independent primarily w/ the use of a cane but has multiple walkers in the home, shower chair, grab bars and medic alert button she wears around her neck.
Pt was at [facility] for SNF in the past
Prev known to [facility] in the past
Address, points of contact and insurance verified
PCP: Dr. Perea
Pharmacy: [facility]
Plan: CM will cont to follow hospital course
--- NOTE | 2024-12-04 18:30 | PTCARENOTE ---
Clamped the NG tube per order, and recheck residule after six hour, no residule at this time.
[2024-12-04] MEDS: HEPARIN 25000 UNITS/250 ML IV (21:41)
[2024-12-04 23:30] VITALS: BP 148/82
--- NOTE | 2024-12-05 01:02 | PTCARENOTE ---
Pt pulled NGT out accidently while sleeping. no residual prior. Pt denies nausea. MARINA Villeda made aware. Continuing to monitor.
[2024-12-05] MEDS: ATIVAN 0.5 MG IV (03:16)
[2024-12-05] MEDS: NSS 1000 IV (03:16)
[2024-12-05] MEDS: NSS (PRESERVATIVE FREE) 0.25 ML IV (03:17)
[2024-12-05 07:32] VITALS: BP 150/71
[2024-12-05] MEDS: LASIX 20 MG IV (08:22)
[2024-12-05] MEDS: PROTONIX IV 40 MG IV (08:24)
[2024-12-05] MEDS: NSS (PRESERVATIVE FREE) 10 ML IV (08:25)
[2024-12-05 09:19] LABS: APTT 78.1 Sec (23.4-35.0); Hematocrit 38.2 % (37.0-47.0); Hemoglobin 13.1 g/dL (12.0-16.0); Mean Corp Hgb Conc. 34.3 g/dL (33.0-37.0); Mean Corpuscular Hgb 31.6 pg (27.0-31.0); Mean Corpuscular Volume 92.3 fL (81.0-99.0); Mean Platelet Volume 9.1 fL (7.4-10.4); Platelet Count 179 10^3/uL (130-400); Red Blood Cell Count 4.14 10^6/uL (4.20-5.40); Red Cell Dist. Width 12.1 % (11.5-14.5); White Blood Cell Count 3.3 10^3/uL (4.8-10.8)
--- NOTE | 2024-12-05 09:30 | W.PN.GS2 ---
Today's Communication / Plan
-
Trial of clears
Assessment / Plan
-
Assessment: 89-year-old female presenting with obstructive symptoms likely secondary to large recurrent ventral incisional hernia. No signs of immediate stomach/bowel compromise or threat.
No further fevers, VSS
NGT out overnight
Passing flatus, last Bm was on Thursday
BMP pending for today, CBC stable
Plan:
Recommend utilizing abdominal wall binder for support when OOB, ok to take off while sleeping
At the moment continue to hold Eliquis, on heparin gtt for AC
Trial of clears
Will follow
Ultimately given size of the hernia defect and patient's age as well as prior abdominal surgical history it would be quite invasive to entertain repairing such a large hernia which typically will require abdominal wall reconstruction with myofascial
flap/component separation. Thus far improving with nonoperative management.
Subjective Data
-
Date of Service: December 05, 2024
Patient seen and examined at bedside with Dr. Baird. Denies n/v. Passing flatus. Hernia site tender but at baseline. NGT out overnight.
Objective Data
-
Intake and Output
12/04/24 12/05/24 12/06/24
06:59 06:59 06:59
Intake Total 600 / 600 720 / 720
Output Total 900 / 900 225 / 225
Balance -300 / -300 495 / 495
Intake:
IV fluids (Total) 600 / 600 720 / 720
Output:
Gastrointestinal tube output ( 150 / 150 100 / 100
Total)
[place] Sump 150 / 150 100 / 100
Urine, Voided 750 / 750 125 / 125
Other:
Number of approximated MODERATE 1 1
amounts of urine
How many times incontinent 3
MODERATE amount urine
Vital Signs
Temp Pulse Resp BP Pulse Ox
98.3 F 105 18 150/71 96
12/05/24 07:32 12/05/24 07:32 12/05/24 07:32 12/05/24 07:32 12/05/24 07:32
Lab Results
12/05/24 08:42
Calcium 8.5 mg/dl (8.4-10.2) 12/04/24 07:01
Total Bilirubin 1.1 mg/dl (0.2-1.3) 12/04/24 07:01
AST 43 U/L (14-36) H 12/04/24 07:01
ALT 39 U/L (0-35) H 12/04/24 07:01
Alkaline Phosphatase 73 U/L (38-126) 12/04/24 07:01
Total Protein 6.5 g/dl (6.3-8.2) 12/04/24 07:01
Albumin 4.1 g/dl (3.5-5.0) 12/04/24 07:01
Physical Exam
-
NAD
ABD soft with upper midline incisional hernia tender but soft/reducible, ND
[2024-12-05 09:52] LABS: ALT (SGPT) 36 U/L (0-35); AST (SGOT) 40 U/L (14-36); Albumin 4.3 g/dl (3.5-5.0); Alkaline Phosphatase 71 U/L (38-126); Blood Urea Nitrogen 18 mg/dl (7-17); Calcium 8.6 mg/dl (8.4-10.2); Carbon Dioxide 22 mmol/L (22-30); Chloride 107 mmol/L (98-107); Estimated Creatinine Clearance 64 ml/min; Glucose 62 mg/dl (70-99); Potassium 3.4 mmol/L (3.5-5.1); Sodium 146 mmol/L (135-145); Total Bilirubin 1.4 mg/dl (0.2-1.3); Total Protein 6.7 g/dl (6.3-8.2); eGFR > 60.00
[2024-12-05] MEDS: REQUIP 2.5 MG PO ×2 (13:12→17:15)
--- NOTE | 2024-12-05 14:23 | CM ---
Chart reviewed and rn case manager met with patient, patient is sitting on edge of bed, plan will be to home when stable.
Plan; Home when stable.
[2024-12-05 15:30] VITALS: BP 118/68; BP 122/64; PULSE 88; O2SAT 95
--- NOTE | 2024-12-05 15:48 | PTCARENOTE ---
Addendum entered by Kathy Knott RN 12/05/24 17:43:
Bleeding has stopped.
Addendum entered by Kathy Knott RN 12/05/24 16:28:
Heparin gtt stopped at [address] order and ice applied to the bridge of pt's nose. Bleeding has slowed down to a small drip at this point. Will continue to monitor.
Original Note:
Pt presently has a nose bleed while on a heparin gtt at 10ml/hr. Dr. Dowell notified and will await orders
[2024-12-05] MEDS: KCL 270 MEQ IV (16:20)
--- NOTE | 2024-12-05 17:34 | W.PN.DEATH ---
Pronouncement of
-
Called to see patient to pronounce.
No spontaneous heart tones or respirations noted.
Patient not responsive to verbal stimuli.
Patient is pronounced .
Time of : 16:49
Date of : 12/05/24
Cause of : Multisystem Organ Failure
Family Notified: Yes
--- NOTE | 2024-12-05 17:55 | W.PN.UPDATE ---
Update Note
Progress Note Update
Seen and examined by me independently in collaboration with the medical office worker.
Lab data and imaging data reviewed.
Addendum as below :
Improved GI function-NG tube is out and patient on clear liquid diet. Patient developed epistaxis requiring ice pack to the bridge and compression now resolved. Hold IV heparin for now. If no plans for surgery and continued GI function and okay
with surgery will plan to start on Eliquis tomorrow.
Will discuss with family and patient regarding the renal abnormality noted once acute GI issues have resolved.
--- NOTE | 2024-12-05 17:57 | W.PN.HOSP.TC ---
Today's Communication/Plan
-
Clear liquid diet, abdominal binder, hold AC in setting of epistaxis.
Assessment / Plan
Assessment / Plan
89-year-old female presenting to the ED with abdominal pain and nausea.
#Epigastric abdominal pain
#Abdominal Distention
- Likely due to herniation of the supraumbilical abdominal wall defect, Hernia sac reduced by surgery. CT imaging with large hernia containing bowel and portion of the stomach with resultant partial obstruction.
- C/w abdominal binder, IV zofran/analgesics prn
- Clamp trial successful; advance diet per Surgery
- Surgery following
Due to prior recurrent hernia repairs, age and size of the hernia�surgery recommend nonoperative management with supportive care.
#Febrile episode - Tmax 102.5, CXR/UA not suggestive for infection, leukopenia but no neutropenia. Monitor temperature
#A-fib
- Patient is able to tolerate PO, will restart Diltiazem 180 BID
- Holding Eliquis. Was on heparin, now holding as patient is having epistaxis. Will re-evaluate in AM.
#Restless leg syndrome - was on ativan while NPO. Able to tolerate PO, will start back on home dose ropinerole.
#Diet - CLD
#DVT PPx � none; epistaxis
#Code Status �DNR
Anticipated Discharge: 24 - 48 hours
Subjective/Interval History
-
Feeling much better this morning. NG tube was clamped last night and pulled in the AM before our discussion. She was feeling well and was without nausea/vomiting/abdominal pain. She has been tolerating water and is excited to start eating.
Objective Data
-
Labs:
Laboratory Results
12/05/24
08:42
WBC 3.3 L
Hgb 13.1
Hct 38.2
Plt Count 179 D
APTT 78.1 H
Sodium 146 H
Potassium 3.4 L
Chloride 107
Carbon Dioxide 22
BUN 18 H
Creatinine 0.7
Glucose 62 L
Calcium 8.6
Total Bilirubin 1.4 H
AST 40 H
ALT 36 H
Alkaline Phosphatase 71
Vital Signs:
Vital Signs
Temp Pulse Resp BP Pulse Ox
98.3 F 88 20 118/68 95
12/05/24 15:30 12/05/24 15:30 12/05/24 15:30 12/05/24 15:30 12/05/24 15:30
I&O
12/04/24 12/05/24 12/06/24
06:59 06:59 06:59
Intake Total 600 / 600 720 / 720 2119
Output Total 900 / 900 225 / 225
Balance -300 / -300 495 / 495 2119
Review of Systems
-
History Source: Patient
Constitutional: Reports No Symptoms
EENT: Reports No Symptoms Reported
Respiratory: Reports No Symptoms
Cardiac: Reports No Symptoms
Abdomen/GI: Reports No Symptoms
Breast: Reports N/A
Genitourinary: Reports No Symptoms
Musculoskeletal: Reports No Symptoms
Skin: Reports No Symptoms
Neuro: Reports No Symptoms
Physical Exam
-
General: Well Developed, Well Nourished, No Apparent Distress and Comfortable; Negative Pain
HEENT: Normocephalic, Atraumatic, Moist Mucous Membranes, Anicteric, [place] Conjunctivae, PERRLA and Nose Appears Normal
Respiratory: Clear to Auscultation; Negative Wheezes, Rales or Rhonchi
Cardiac: Regular Rhythm and S1/S2; Negative Murmur
GI: Soft, Nontender, Normal Bowel Sounds and Other (Large ventral hernia with bowel sounds. )
Musculoskeletal: No Clubbing, No Cyanosis and No Edema
Skin: Warm, Dry and IV Access / Catheter Site
Neuro: AO x 3
[2024-12-05] MEDS: CARDIZEM CD 180 MG PO (20:29)
[2024-12-05] MEDS: REQUIP PO (22:29)
[2024-12-05 23:55] VITALS: BP 110/58
[2024-12-06] MEDS: REQUIP 2 MG PO ×2 (00:12→21:57)
[2024-12-06] MEDS: NSS IV (05:27)
[2024-12-06 06:00] VITALS: BMI 31.5
[2024-12-06 07:01] LABS: Hemoglobin 11.9 g/dL (12.0-16.0); Mean Corp Hgb Conc. 36.1 g/dL (33.0-37.0); Mean Corpuscular Hgb 32.2 pg (27.0-31.0); Mean Corpuscular Volume 89.4 fL (81.0-99.0); Mean Platelet Volume 9.1 fL (7.4-10.4); Platelet Count 175 10^3/uL (130-400); Red Blood Cell Count 3.69 10^6/uL (4.20-5.40); Red Cell Dist. Width 12.2 % (11.5-14.5); White Blood Cell Count 3.1 10^3/uL (4.8-10.8)
[2024-12-06 07:13] LABS: APTT 31.3 Sec (23.4-35.0)
[2024-12-06 07:23] LABS: ALT (SGPT) 27 U/L (0-35); AST (SGOT) 28 U/L (14-36); Albumin 3.2 g/dl (3.5-5.0); Alkaline Phosphatase 65 U/L (38-126); Blood Urea Nitrogen 10 mg/dl (7-17); Calcium 8.6 mg/dl (8.4-10.2); Carbon Dioxide 25 mmol/L (22-30); Chloride 104 mmol/L (98-107); Estimated Creatinine Clearance 73 ml/min; Glucose 126 mg/dl (70-99); Potassium 3.3 mmol/L (3.5-5.1); Sodium 136 mmol/L (135-145); Total Protein 5.4 g/dl (6.3-8.2); eGFR > 60.00
[2024-12-06 08:10] VITALS: BP 125/66
[2024-12-06] MEDS: REQUIP 1 MG PO (08:35)
[2024-12-06] MEDS: PROTONIX 20 MG PO (08:35)
[2024-12-06] MEDS: CARDIZEM CD 180 MG PO ×2 (08:35→21:12)
--- NOTE | 2024-12-06 08:36 | W.PN.GS2 ---
Today's Communication / Plan
-
-- Fulls, ADAT to LRD
Assessment / Plan
-
Assessment: 89-year-old female presenting with obstructive symptoms likely secondary to large recurrent ventral incisional hernia. No signs of immediate stomach/bowel compromise or threat.
AVSS
Labs reviewed; leukopenia, acute non-bloodless anemia (uncertain type, suspect dilutional and iron deficiency), hypokalemia
Clinically stable with a soft reducible ventral incisional hernia without concerns for strangulation. Obstructive symptoms have resolved. Slow dietary advancement throughout the day. Dietary education provided. Complexities of stool consistency
and managing constipation diarrhea/incontinence issues as discussed and reviewed. Previous discussions on management of hernia, plan for a watchful waiting approach given her age, general medical condition, and complexity of hernia.
Plan:
-- Fulls, ADAT to LRD
-- Abdominal wall binder for support when OOB, ok to take off while sleeping
-- OK for Eliquis
Subjective Data
-
Date of Service: December 06, 2024
No complaints. Denies worsening abdominal pain, nausea, or vomiting. Passing flatus and stools. Afebrile.
Objective Data
-
Intake and Output
12/05/24 12/06/24 12/07/24
06:59 06:59 06:59
Intake Total 720 / 720 3870 / 3870
Output Total 225 / 225
Balance 495 / 495 3870 / 3870
Intake:
Oral fluids 1920 / 1920
IV fluids (Total) 720 / 720 1680 / 1680
IV piggybacks 270 / 270
Output:
Gastrointestinal tube output ( 100 / 100
Total)
[place] Sump 100 / 100
Urine, Voided 125 / 125
Other:
Number of approximated MODERATE 1 3
amounts of urine
Number of approximated LARGE 3
amounts of urine
How many times incontinent 3
MODERATE amount urine
Vital Signs
Temp Pulse Resp BP Pulse Ox
97.6 F 73 16 125/66 98
12/06/24 08:10 12/06/24 08:10 12/06/24 08:10 12/06/24 08:10 12/06/24 08:10
Lab Results
12/06/24 06:49
12/06/24 06:49
Calcium 8.6 mg/dl (8.4-10.2) 12/06/24 06:49
Total Bilirubin 1.0 mg/dl (0.2-1.3) 12/06/24 06:49
AST 28 U/L (14-36) 12/06/24 06:49
ALT 27 U/L (0-35) 12/06/24 06:49
Alkaline Phosphatase 65 U/L (38-126) 12/06/24 06:49
Total Protein 5.4 g/dl (6.3-8.2) L 12/06/24 06:49
Albumin 3.2 g/dl (3.5-5.0) L 12/06/24 06:49
Physical Exam
-
Gen: NAD
Abd: soft, NT/ND, large ventral incisional hernia, soft, reducible, no skin changes, non-peritoneal
Patient has a booker catheter: No
Patient has a central line: No
--- NOTE | 2024-12-06 09:29 | W.PN.HOSP.TC ---
Addendum entered and electronically signed by Bill Dowell MD 12/06/24 16:20:
Seen and examined by me independently in collaboration with the medical registrar.
Lab data and imaging data reviewed.
Addendum as below :
Improving GI function. Advance diet to low residue diet tonight if she tolerates it.
Discussed with the patient on [id number] who is a nurse practitioner at bedside regarding the incidental finding of subcentimeter left renal lesion. It is a solid mass but subcentimeter. No prior images to compare. With the lesion being less
than 1 cm I advised surveillance follow-up CT is recommended and no other testing warranted.
Original Note:
Today's Communication/Plan
-
Restart Eliquis. Advance diet as tolerated.
Assessment / Plan
Assessment / Plan
89-year-old female presenting to the ED with abdominal pain and nausea.
#Epigastric abdominal pain
#Abdominal Distention
- Likely due to herniation of the supraumbilical abdominal wall defect, Hernia sac reduced by surgery. CT imaging with large hernia containing bowel and portion of the stomach with resultant partial obstruction.
- C/w abdominal binder, IV zofran/analgesics prn
- Clamp trial successful; FLD for lunch, if tolerating can advance to low residue for dinner.
- Surgery following
Due to prior recurrent hernia repairs, age and size of the hernia�surgery recommend nonoperative management with supportive care.
#Febrile episode - Tmax 102.5, CXR/UA not suggestive for infection, leukopenia but no neutropenia. Monitor temperature
#A-fib
- Patient is able to tolerate PO, will restart Diltiazem 180 BID
- No new episodes of epistaxis or bleeding, Hgb stable. Will restart Eliquis.
#Restless leg syndrome - was on ativan while NPO. Able to tolerate PO, will start back on home dose ropinerole. Better.
#Diet - FLD
#DVT PPx � none; epistaxis
#Code Status �DNR
Anticipated Discharge: 24 - 48 hours
Subjective/Interval History
-
Feeling well this morning, no acute complaints. Tolerated her CLD for breakfast. Had some lose stools, without blood or mucous. No new nose bleeds.
Objective Data
-
Labs:
Laboratory Results
12/06/24
06:49
WBC 3.1 L
Hgb 11.9 L
Hct 33.0 L
Plt Count 175
APTT 31.3
Sodium 136 D
Potassium 3.3 L
Chloride 104
Carbon Dioxide 25
BUN 10
Creatinine 0.6
Glucose 126 H
Calcium 8.6
Total Bilirubin 1.0
AST 28
ALT 27
Alkaline Phosphatase 65
Vital Signs:
Vital Signs
Temp Pulse Resp BP Pulse Ox
97.6 F 73 16 125/66 98
12/06/24 08:10 12/06/24 08:10 12/06/24 08:10 12/06/24 08:10 12/06/24 08:10
I&O
12/05/24 12/06/24 12/07/24
06:59 06:59 06:59
Intake Total 720 / 720 3870 / 3870
Output Total 225 / 225
Balance 495 / 495 3870 / 3870
Review of Systems
-
History Source: Patient
Constitutional: Reports No Symptoms
EENT: Reports No Symptoms Reported
Respiratory: Reports No Symptoms
Cardiac: Reports No Symptoms
Abdomen/GI: Reports No Symptoms
Genitourinary: Reports No Symptoms
Musculoskeletal: Reports No Symptoms
Skin: Reports No Symptoms
Neuro: Reports No Symptoms
Physical Exam
-
General: Well Developed, Well Nourished, No Apparent Distress and Comfortable
HEENT: Normocephalic, Atraumatic, Moist Mucous Membranes, Anicteric, [place] Conjunctivae, PERRLA, Nose Appears Normal and Ears Appear Normal
Respiratory: Clear to Auscultation; Negative Wheezes, Rales or Rhonchi
Cardiac: Regular Rhythm and S1/S2; Negative Murmur or Rub
GI: Soft, Nontender, Nondistended, Normal Bowel Sounds and Other (Large ventral hernia, soft)
Musculoskeletal: No Clubbing, No Cyanosis and No Edema
Skin: Warm, Dry and IV Access / Catheter Site
Neuro: AO x 3
[2024-12-06] MEDS: KCL 40 MEQ PO (09:40)
[2024-12-06] MEDS: ELIQUIS 5 MG PO ×2 (11:10→21:13)
[2024-12-06] MEDS: REQUIP 2.5 MG PO ×2 (11:38→17:09)
[2024-12-06 15:00] VITALS: BP 115/54
--- NOTE | 2024-12-06 15:17 | CM ---
combat control manager reviewed patient's chart and patient continues to progress, plan is to home when stable with visiting nurses, adult protective caseworker spoke with patient and patient would like a referral to [facility] visiting nurses as she had them in the past.
Plan; Home with [facility] Visiting nurses
[facility]
[phone]
[2024-12-06 21:02] VITALS: BP 109/39
[2024-12-06 23:30] VITALS: BP 97/40
[2024-12-07 06:00] VITALS: BMI 31.7
[2024-12-07 07:00] VITALS: BP 132/59
--- NOTE | 2024-12-07 08:39 | W.PN.HOSP.TC ---
Today's Communication/Plan
-
OK for D/c on miralax.
Assessment / Plan
Assessment / Plan
89-year-old female presenting to the ED with abdominal pain and nausea.
#Epigastric abdominal pain
#Abdominal Distention
#Colonic Obstruction secondary to large recurrent ventral hernia
- Likely due to herniation of the supraumbilical abdominal wall defect, Hernia sac reduced by surgery. CT imaging with large hernia containing bowel and portion of the stomach with resultant partial obstruction.
- C/w abdominal binder, IV zofran/analgesics prn
- Clamp trial successful; advanced to regular diet. Tolerating well.
- OK to go home, passing gas.
Due to prior recurrent hernia repairs, age and size of the hernia�surgery recommend nonoperative management with supportive care.
#Febrile episode - Tmax 102.5, CXR/UA not suggestive for infection, leukopenia but no neutropenia. Monitor temperature
#A-fib
- Patient is able to tolerate PO, will restart Diltiazem 180 BID
- No new episodes of epistaxis or bleeding, Hgb stable. Will restart Eliquis.
#Restless leg syndrome - was on ativan while NPO. Able to tolerate PO, will start back on home dose ropinerole. Better.
#Diet - FLD
#DVT PPx � none; epistaxis
#Code Status �DNR
Anticipated Discharge: Today
Subjective/Interval History
-
Feeling well, tolerating her diet. Has not had a bowel movement in about 24 hours, but she is passing gas.
Objective Data
-
Labs:
Laboratory Results
12/07/24
07:46
Sodium Pending
Potassium Pending
Chloride Pending
Carbon Dioxide Pending
BUN Pending
Creatinine Pending
Glucose Pending
Calcium Pending
Total Bilirubin Pending
AST Pending
ALT Pending
Alkaline Phosphatase Pending
Vital Signs:
Vital Signs
Temp Pulse Resp BP Pulse Ox
98.2 F 66 16 97/40 95
12/06/24 23:30 12/06/24 23:30 12/06/24 23:30 12/06/24 23:30 12/06/24 23:30
I&O
12/06/24 12/07/24 12/08/24
06:59 06:59 06:59
Intake Total 3870 / 3870 960 / 960
Balance 3870 / 3870 960 / 960
Review of Systems
-
History Source: Patient
All other systems: Reviewed and negative
Constitutional: Reports No Symptoms
EENT: Reports No Symptoms Reported
Respiratory: Reports No Symptoms
Cardiac: Reports No Symptoms
Abdomen/GI: Reports No Symptoms
Genitourinary: Reports No Symptoms
Musculoskeletal: Reports No Symptoms
Skin: Reports No Symptoms
Neuro: Reports No Symptoms
Physical Exam
-
General: Well Developed, Well Nourished, No Apparent Distress and Comfortable
HEENT: Normocephalic, Atraumatic, Moist Mucous Membranes, Anicteric, [place] Conjunctivae, PERRLA, Nose Appears Normal and Ears Appear Normal
Respiratory: Clear to Auscultation; Negative Wheezes, Rales or Rhonchi
Cardiac: Regular Rhythm and S1/S2; Negative Murmur or Rub
GI: Soft, Nontender, Nondistended, Normal Bowel Sounds and Other (large ventral hernia with bowel sounds)
Musculoskeletal: No Clubbing, No Cyanosis and No Edema
Skin: Warm and IV Access / Catheter Site
Neuro: AO x 3
[2024-12-07] MEDS: REQUIP 1 MG PO (08:40)
[2024-12-07] MEDS: PROTONIX 20 MG PO (08:40)
[2024-12-07] MEDS: CARDIZEM CD 180 MG PO (08:40)
[2024-12-07] MEDS: ELIQUIS 5 MG PO (08:40)
[2024-12-07 08:55] LABS: ALT (SGPT) 30 U/L (0-35); AST (SGOT) 30 U/L (14-36); Albumin 3.7 g/dl (3.5-5.0); Alkaline Phosphatase 68 U/L (38-126); Blood Urea Nitrogen 6 mg/dl (7-17); Calcium 8.9 mg/dl (8.4-10.2); Carbon Dioxide 26 mmol/L (22-30); Chloride 104 mmol/L (98-107); Estimated Creatinine Clearance 73 ml/min; Glucose 117 mg/dl (70-99); Sodium 138 mmol/L (135-145); Total Bilirubin 0.8 mg/dl (0.2-1.3); Total Protein 5.8 g/dl (6.3-8.2); eGFR > 60.00
[2024-12-07 11:21] LABS: % Basophils 0.5 % (0-2); % Eosinophils 3.4 % (0-6); % Immature Granulocytes 0.3 % (0-0.5); % Lymphocytes 25.6 % (20.5-51.1); % Monocytes 11.6 % (1.7-9.3); % Neutrophils 58.6 % (42.2-75.2); Absolute Eosinophils 0.1 10^3/uL (0-0.7); Absolute Monocytes 0.5 10^3/uL (0.1-0.6); Absolute Neutrophils 2.3 10^3/uL (1.4-6.5); Hematocrit 36.3 % (37.0-47.0); Hemoglobin 12.5 g/dL (12.0-16.0); Mean Corp Hgb Conc. 34.4 g/dL (33.0-37.0); Mean Corpuscular Hgb 31.4 pg (27.0-31.0); Mean Corpuscular Volume 91.2 fL (81.0-99.0); Nucleated Red Blood Cells % 0 %; Platelet Count 173 10^3/uL (130-400); Red Blood Cell Count 3.98 10^6/uL (4.20-5.40); Red Cell Dist. Width 12.1 % (11.5-14.5); White Blood Cell Count 3.9 10^3/uL (4.8-10.8)
[2024-12-07] MEDS: COLACE 100 MG PO (11:22)
[2024-12-07] MEDS: MIRALAX 17 GRAMS PO (11:23)
[2024-12-07] MEDS: REQUIP 2.5 MG PO (13:11)
[2024-12-07 15:00] VITALS: BP 136/103
--- NOTE | 2024-12-07 15:27 | CM ---
primary health organisation manager reviewed patient's chart and plan is to home when stable with [facility] visiting nurses.
[facility]
[phone]
--- NOTE | 2024-12-07 15:35 | W.PN.UPDATE ---
Update Note
Progress Note Update
Seen and examined by me independently in collaboration with the medical professionals.
Lab data and imaging data reviewed.
Addendum as below :
Tolerating low residue diet without nausea vomiting or abdominal pain. Passing flatus but no bowel movement yet.
Voices no other specific complaints.
Started on laxative regimen this morning.
DC home with VN when ok from surgical standpoint.
DW [id number] at bedside.
Total time of dc 32 min
--- NOTE | 2024-12-07 17:32 | W.DCSUMMARY ---
Discharge Summary
Discharge Data
Date of Admission: 12/02/24
Date of Discharge: 12/07/24
Total time spent discharging patient (in min): >30m
-
Pending Results: No
Hospital Course
Discharging Physician : Dr. Oneal Jauregui, Dr. Bill Dowell
Disposition : Home with VN
Primary care physician : Wayne Perea
Principal Discharge diagnosis : Partial Colonic Obstruction
Chronic Discharge diagnosis : Paroxysmal Afib on Eliquis, GERD, PE/ DVT, Restless leg syndrome.
Hospital Course : 89 yo female with a past medical history of A-fib on Eliquis, PE/DVT, cholecystectomy, appendectomy and multiple abdominal hernia repairs presents with nausea and epigastric pain.She has been having mild intermittent abdominal
pain from the reducible hernia from the past few months, but the day before admission, she developed acute abdominal pain and nausea. Patient uses abdominal binder at home.
In the ER, her vitals were stable, WBC- 11.8, lactate, transaminases and lipase normal. CT abdomen pelvis showed colonic obstruction and gastric outlet obstruction. Surgery was consulted. Herniated contents were reduced. Patient had NG tube
decompression and had some relief. Started on NPO, IVFs, heparin drip, oral home medications were held and IV lasix, antiemetics were started. IV diltiazem prn.
Due to prior recurrent hernia repairs, age and size of the hernia�surgery planned to proceed with nonoperative management with supportive care. Patient was given IV ativan for her restless leg syndrome as she cannot take her home oral Ropinorole.
Patient spiked a temp of 102, got UA which showed no evidence of UTI, and Chest X ray with no evidence of PNA, no antibiotics were started, her fever resolved. NG tube drain amount monitored and when patient was able to pass flatus, NG tube clamp
trial done. Her diet was advanced as tolerated without issue. She was deemed medically stable for discharge with homecare and given a prescription for Miralax.
Important imaging findings :
CT Abd/ Pelvis 12/02/24 :Stomach filled with oral contrast and air as well as dilated proximal half of the large bowel with fluid, mid to distal stomach and portion of transverse colon extending into a large predominantly midline anterior abdominal
wall hernia. Narrowing of the distal stomach and narrowing of the transition point of the colon suggests at least partial gastric outlet and colonic obstruction. No findings to suggest colonic or gastric pneumatosis. No free air. Suggest
correlation with serum lactate level and surgical consultation. Findings discussed by telephone with Galen Leigh PA-C at 1150 hours on December 02, 2024.
0.9 cm solid partially exophytic lower pole left renal lesions suspicious for malignancy including possible Renal Cell carcinoma.
Prior cholecystectomy.
Hepatomegaly.
Chest X ray- 12/03/24- 1. No radiographic evidence for pneumonia.
2. Mild scarring and subsegmental atelectasis in both lower lungs.
3. Mild cardiomegaly.
4. Nasogastric tube in place with decompression of previously visualized gastric distention.
Discharge Plan
-
Patient Disposition: Home with Home Care
Discharge Diagnosis/Procedures: SBO
Condition: Good
Diet: As tolerated and Regular
Activity: As tolerated
Driving Restrictions: As prior to admission
Bathing Restrictions: None
Other Services: VN
Referrals:
Wayne Perea MD [Family Provider] - in less than 1 week
Prescriptions:
New
polyethylene glycol 3350 17 gram Powder In Packet
17 g PO DAILY 30 Days Qty: 30 0RF
Continued
cholecalciferol (vitamin D3) [Vitamin D3] 2,000 UNIT capsule
2,000 unit PO DAILY
acetaminophen 325 MG tablet
650 tablets PO DAILY
therapeutic multivitamin Tablet
1 tab PO DAILY
tramadol 50 mg Tablet
50 mg PO HS
omeprazole 20 mg Capsule,Delayed Release(Dr/Ec)
20 mg PO DAILY
calcium-magnesium 750-465 mg Tablet
2 tab PO DAILY
loratadine [Claritin] 10 mg Tablet
10 mg PO DAILY
famotidine 20 mg tablet
20 mg PO HS
polyethylene glycol 3350 [Miralax] 17 gram/dose Powder
17 g PO DAILYPRN PRN (Reason: constipation)
furosemide 40 mg tablet
40 mg PO BID
ropinirole 1 mg tablet
2.5 mg PO BID@1200,1800
ropinirole 1 mg tablet
2 mg PO HS
ropinirole 1 mg tablet
1 mg PO DAILY
diltiazem HCl 180 mg capsule,extended release 24hr
180 mg PO BID
Eliquis 5 mg tablet
5 mg PO BID
Discharge Orders:
Discharge Patient (As Directed); Ordered 12/07/24
Ordered By: Oneal Jauregui
Discharge Date and Time
Discharge Date/Time: 12/07/24 16:48
Print Language: SAUDI ARABIAN
== END 2024-12-07 16:48 | disposition home health service (06) | DRG 394 ==
LOC: 4 WEST ACU 16:21
PROVIDERS: Internal Medicine; Registered Nurse; Student in an Organized Health Care Education/Training Program; Surgery; ADMITTING PHYSICIAN Internal Medicine; ATTENDING PHYSICIAN Internal Medicine; CONSULT PHYSICIAN Surgery; EMERGENCY PHYSICIAN Emergency Medicine; FAMILY PHYSICIAN Internal Medicine
DX: K43.0 Incisional hernia with obstruction, without gangrene (principal); I50.32 Chronic diastolic (congestive) heart failure; J98.11 Atelectasis; Z79.01 Long term (current) use of anticoagulants; I48.0 Paroxysmal atrial fibrillation; G25.81 Restless legs syndrome; Z66 Do not resuscitate
CPT/HCPCS: 43752; 71046; 74177; 80048; 80053; 81003; 81015; 83605; 83690; 85025; 85027; 85730; 86850; 86900; 86901; 93005; 96374; 96375; 96376; 97116; 97162; 97166; 97530; 99285; Q9967

== ENCOUNTER 2025-06-11 12:49 | Emergency (ER) | payer MEDICARE, OTHER, SELFPAY ==
[2025-06-11] VITALS (19 sets, daily range): BP systolic 100–151; BP diastolic 61–94
[2025-06-11 13:18] LABS: Hematocrit 41.7 % (37.0-47.0); Hemoglobin 14.4 g/dL (12.0-16.0); Mean Corp Hgb Conc. 34.5 g/dL (33.0-37.0); Mean Corpuscular Volume 90.7 fL (81.0-99.0); Nucleated Red Blood Cells % 0 %; Platelet Count 254 10^3/uL (130-400); Red Cell Dist. Width 12.9 % (11.5-14.5)
[2025-06-11 13:34] LABS: ALT (SGPT) 22 U/L (0-35); AST (SGOT) 22 U/L (14-36); Albumin 4.8 g/dl (3.5-5.0); Alkaline Phosphatase 87 U/L (38-126); Blood Urea Nitrogen 12 mg/dl (7-17); Calcium 9.2 mg/dl (8.4-10.2); Carbon Dioxide 30 mmol/L (22-30); Chloride 103 mmol/L (98-107); Glucose 135 mg/dl (70-99); Potassium 4.0 mmol/L (3.5-5.1); Sodium 140 mmol/L (135-145); Total Protein 7.3 g/dl (6.3-8.2); eGFR > 60.00
[2025-06-11 14:11] LABS: Urine Character Clear (Clear)
--- NOTE | 2025-06-11 15:03 | ED.GENMED ---
History of Present Illness
<Galen Leigh PA-C - Last Filed: 06/11/25 16:11>
General
Chief Complaint: Abdominal Pain
Time Seen by Provider: 06/11/25 13:24
History of Present Illness
History of Present Illness:
89-year-old female with history of paroxysmal A-fib on Eliquis presents the emergency department for evaluation of general ease and sweating as well as palpitations that began in islam this morning. She states that she stood up and felt as though
she might pass out. Family also notes that she is profoundly dyspneic with any exertion, yesterday she was in her normal state of health with no similar complaints. Triage note indicates right lower quadrant pain however the patient denies this on
exam
Past History
<Galen Leigh PA-C - Last Filed: 06/11/25 16:11>
Past History
ED Past Medical History: Arrthythmia, GERD and Other (DVT)
ED Past Surgical History: Appendectomy, Gynecological (D&C), Orthopedic (Left knee replacement), Tonsilectomy and Other (Thyroid biopsy)
Social History
Tobacco: Non-smoker
Alcohol: None
Drug: None
Review of Systems
<Galen Leigh PA-C - Last Filed: 06/11/25 16:11>
Review of Systems
Allergies reviewed?: Yes
All Other Systems: ROS reviewed and negative except as documented in HPI and ROS
Phy Exam
<Galen Leigh PA-C - Last Filed: 06/11/25 16:11>
Physical Exam
Physical Exam:
GEN: Well appearing, NAD, WDWN
HEENT: Oral mucosa moist, no scleral icterus
Cardiac: Tachycardic and irregular, no murmur
Lung: No respiratory distress, no tachypnea, lungs clear to auscultation bilaterally
MSK: No gross deformity or injuries, no lower extremity edema
Skin: Good color, no pallor or jaundice, no rashes
Neuro: AO x3, moves all extremities freely
Psych: Calm, cooperative
Course
<Galen Leigh PA-C - Last Filed: 06/11/25 16:11>
Orders/Labs/Results
Orders:
Orders
06/11/25 12:59
Electrocardiogram (*1) Urgent
Reason for Study: Chest Pain
EKG- Treatment ONCE
06/11/25 13:09
Complete Blood Count/With Diff Urgent
Comprehensive Metabolic Panel Urgent
06/11/25 14:00
UA Reflex to Culture [Urinalysis Reflex To Culture] Urgent
Date Specimen was Collected: 06/11/25
Time Specimen was Collected: 12:59
06/11/25 14:12
Propofol [Diprivan] 20 ml .ROUTE .STK-MED
06/11/25 15:00
Propofol [Diprivan] 20 ml .ROUTE .STK-MED
06/11/25 15:24
Electrocardiogram (*1) Urgent
Reason for Study: Other
Other Reason for Exam: post cardioversion
EKG- Treatment ONCE
Abnormal Lab Results
06/11/25
13:09
MCH 31.3 H pg
(27.0-31.0)
Absolute Monos (auto) 0.8 H 10^3/uL
(0.1-0.6)
Lymphocytes % 19.4 L %
(20.5-51.1)
Monocytes % 10.7 H %
(1.7-9.3)
Glucose 135 H mg/dl
(70-99)
06/11/25 13:09
06/11/25 13:09
Vital Signs
Initial and Last Documented VS:
Initial Vital Signs
Temp Pulse Resp BP Pulse Ox
98 F 115 18 151/94 95
06/11/25 12:54 06/11/25 12:54 06/11/25 12:54 06/11/25 12:54 06/11/25 12:54
Last Documented Vital Signs
Temp Pulse Resp BP Pulse Ox
97.6 F 72 18 122/63 96
06/11/25 15:35 06/11/25 15:35 06/11/25 15:35 06/11/25 15:35 06/11/25 15:35
<Kailash Zavala, DO - Last Filed: 06/11/25 15:29>
Orders/Labs/Results
Orders:
Orders
06/11/25 12:59
Electrocardiogram (*1) Urgent
Reason for Study: Chest Pain
EKG- Treatment ONCE
06/11/25 13:09
Complete Blood Count/With Diff Urgent
Comprehensive Metabolic Panel Urgent
06/11/25 14:00
UA Reflex to Culture [Urinalysis Reflex To Culture] Urgent
Date Specimen was Collected: 06/11/25
Time Specimen was Collected: 12:59
06/11/25 14:12
Propofol [Diprivan] 20 ml .ROUTE .STK-MED
06/11/25 15:00
Propofol [Diprivan] 20 ml .ROUTE .STK-MED
06/11/25 15:24
Electrocardiogram (*1) Urgent
Reason for Study: Other
Other Reason for Exam: post cardioversion
EKG- Treatment ONCE
Abnormal Lab Results
06/11/25
13:09
MCH 31.3 H pg
(27.0-31.0)
Absolute Monos (auto) 0.8 H 10^3/uL
(0.1-0.6)
Lymphocytes % 19.4 L %
(20.5-51.1)
Monocytes % 10.7 H %
(1.7-9.3)
Glucose 135 H mg/dl
(70-99)
06/11/25 13:09
06/11/25 13:09
Vital Signs
Initial and Last Documented VS:
Initial Vital Signs
Temp Pulse Resp BP Pulse Ox
98 F 115 18 151/94 95
06/11/25 12:54 06/11/25 12:54 06/11/25 12:54 06/11/25 12:54 06/11/25 12:54
Last Documented Vital Signs
Temp Pulse Resp BP Pulse Ox
97.6 F 72 18 122/63 96
06/11/25 15:35 06/11/25 15:35 06/11/25 15:35 06/11/25 15:35 06/11/25 15:35
Procedures
<Galen Leigh PA-C - Last Filed: 06/11/25 16:11>
Cardioversion
Indication:: Afib
Performed by:: Galen Leigh PA-C, Kailash Zavala, DO
Synchronized?: Yes
Energy Used: 150 joules
Number of attempts: 1
Successful?: Yes
Complications: none
ASA Risk Score: Class II
Any reaction or bad outcome to prior sedation/anesthesia?: No history of a reaction
Sedation level to be attained: moderate
Chart and allergies reviewed: Yes
Patient reassessed prior to sedation: Yes
Time out completed at (validating right patient & procedure): 15:23
History of difficult intubation: No
Airway free of obstruction: Yes
Patient has a gag reflex: Yes
Patient is able to open mouth: Yes
Patient has no dentures: Yes
Patient has no loose teeth: Yes
Medication administered by Provider during Moderate Sedation: IV Propofol (mg)
Total dose administered: 40
Time drug administered: 13:23
Start Time: 13:23
Stop Time: 13:33
<Galen Leigh PA-C - Last Filed: 06/11/25 16:11>
MDM/Problems Addressed
MDM/Problems Addressed:
Patient presented with rapid A-fib underwent electrical cardioversion successfully with no complications. Labs and urinalysis otherwise unremarkable. No changes to current therapy. Will be discharged home
<Galen Leigh PA-C - Last Filed: 06/11/25 16:11>
*Pulse Oximetry
SaO2: 97
Oxygen Mode of Delivery: Room air
Patient hypoxic: no
*Critical Care Note
Total Time (30-74mins, 75-104mins- exclusive of procedures): Not Applicable
ED Attending Note
<Galen Leigh PA-C - Last Filed: 06/11/25 16:11>
-
Portions of this chart may have been created with voice recognition software.� Occasional wrong word or��sound alike� substitutions may have occurred due to the inherent limitations of voice recognition software.
<Kailash Zavala, - Last Filed: 06/11/25 15:29>
ED Attending Note
Patient seen and examined by attending physician: Yes
Discharge Plan
Departure
Patient Disposition: Home (Routine Discharge)
Date of Disposition: 06/11/25
Time of Disposition: 16:11
Patient with high blood pressure during this ER visit?: No
Discharge Problem:
Atrial fibrillation with rapid ventricular response
Instructions: Atrial fibrillation - Discharge instructions, Sedation for procedures in adults - ED discharge instructions
Prescriptions:
No Action
cholecalciferol (vitamin D3) [Vitamin D3] 2,000 UNIT capsule
2,000 unit PO DAILY
acetaminophen 325 MG tablet
650 tablets PO DAILY
therapeutic multivitamin Tablet
1 tab PO DAILY
tramadol 50 mg Tablet
50 mg PO HS
omeprazole 20 mg Capsule,Delayed Release(Dr/Ec)
20 mg PO DAILY
calcium-magnesium 750-465 mg Tablet
2 tab PO DAILY
loratadine [Claritin] 10 mg Tablet
10 mg PO DAILY
famotidine 20 mg tablet
20 mg PO HS
polyethylene glycol 3350 [Miralax] 17 gram/dose Powder
17 g PO DAILYPRN PRN (Reason: constipation)
furosemide 40 mg tablet
40 mg PO BID
ropinirole 1 mg tablet
2.5 mg PO BID@1200,1800
ropinirole 1 mg tablet
2 mg PO HS
ropinirole 1 mg tablet
1 mg PO DAILY
diltiazem HCl 180 mg capsule,extended release 24hr
180 mg PO BID
Eliquis 5 mg tablet
5 mg PO BID
polyethylene glycol 3350 17 gram Powder In Packet
17 g PO DAILY 30 Days Qty: 30 0RF
Referrals:
Wayne Perea MD [Family Provider, Internal Medicine]
Interventions
Interventions:
*Risk Screen - Suicide Last Done: 06/11/25 12:54
*General Assessment Last Done: 06/11/25 13:48
*Neglect/Abuse Screening Last Done: 06/11/25 13:48
*ED- Fall Risk Assessment Last Done: 06/11/25 13:48
*ED COVID-19 Vaccine History Last Done: 06/11/25 13:48
GP-[id number]-[id number] Assessment Last Done: 06/11/25 13:48
Discharge Date and Time
Print Language: HEBREW
== END 2025-06-11 16:36 | disposition home or self-care (01) ==
LOC: EMR 12:49
PROVIDERS: Student in an Organized Health Care Education/Training Program; EMERGENCY PHYSICIAN Emergency Medicine; FAMILY PHYSICIAN Internal Medicine
DX: I48.91 Unspecified atrial fibrillation (principal); Z79.01 Long term (current) use of anticoagulants; Z86.718 Personal history of other venous thrombosis and embolism; Z90.49 Acquired absence of other specified parts of digestive tract
CPT/HCPCS: 92960; 99152; 99285; 80053; 81003; 85025; 93005; 96360